=== PATIENT | female | born 1990 | race Caucasian/White ===

== ENCOUNTER 2021-08-25 12:34 | Observation (INO) | payer SELFPAY ==
[~2021-08-25] VITALS: Ht 154.9 cm; Wt 56.7 kg
== END 2021-08-25 16:25 | disposition home or self-care (01) ==
LOC: 8 EST LDRP 12:34
PROVIDERS: ADMIT Obstetrics & Gynecology; ATTEND Obstetrics & Gynecology
DX: O36.5930 Maternal care for other known or suspected poor fetal growth, third trimester, not applicable or unspecified (principal); Z3A.32 32 weeks gestation of pregnancy
CPT/HCPCS: 59025; 76805; 76818; G0378; 99281